=== PATIENT | male | born 1970 | race Caucasian/White ===

== ENCOUNTER 2021-01-01 21:20 | Inpatient (IN) | payer OTHER ==
[2021-01-01] MEDS ORDERED: Ondansetron PF 4 MG/2 ML Vial ONE (22:09)
[2021-01-01] MEDS ORDERED: HYDROmorphone 0.5 MG/0.5 ML SYRINGE ONE ×2 (22:09→23:35)
[2021-01-01 22:30] LABS: #Monocytes 0.7 10x3/uL (0.0-1.1); #Neutrophils 7.3 10x3/uL (1.5-8.4); %Basophils 0.1 % (0.0-2.0); %Lymphocytes 7.3 % (18.0-47.0); %Monocytes 7.8 % (0.0-10.0); %Neutrophils 84.3 % (40.0-75.0); Hemoglobin 11.6 g/dL (13.5-17.5); Mean Corpuscular HGB CONC 33.4 g/dL (32.0-36.0); Mean Corpuscular Hemoglobin 30.4 pg (27.0-33.0); Mean Corpuscular Volume 90.8 fl (81.2-95.1); Mean Platelet Volume 8.9 fl (7.4-10.4); Platelet Count 381 10x3/uL (150-450); RBC Distribution Width 13.6 % (11.5-14.5); Red Blood Cell (RBC) Count 3.82 10x6/uL (4.32-5.72); White Blood Cell (WBC) Count 8.6 10x3/uL (3.5-10.5)
[2021-01-01 22:49] LABS: ALT (SGPT) 25 U/L (8-55); AST (SGOT) 18 U/L (5-34); Albumin 4.4 g/dL (3.5-5.0); Alkaline Phosphatase 46 U/L (40-110); Anion Gap 14 mmol/L (10-20); BUN (Urea Nitrogen) 16 mg/dL (8.9-20.6); Bilirubin, Total 0.3 mg/dL (0.2-1.2); Calc. Creatinine Clearance 0 mL/min (70-130); Calcium 8.8 mg/dL (7.8-10.44); Carbon Dioxide 23 mmol/L (22-29); Chloride 103 mmol/L (98-107); Globulin 2.7 g/dL (2.4-3.5); Glucose 116 mg/dL (70-105); Lipase 26 U/L (8-78); Protein, Total 7.1 g/dL (6.0-8.3); Sodium 136 mmol/L (136-145)
[2021-01-01] MEDS ORDERED: methylPREDNISolone Sod Succ/PF 125 MG/2 ML VIAL ONE (23:18)
[2021-01-01] MEDS ORDERED: Pantoprazole 40 MG VIAL ONE (23:19)
[2021-01-02 01:21] LABS: Bilirubin Neg (Negative); Blood, Urine Negative (Negative); Clarity Clear (Clear); Glucose, Urine (Dipstick) Normal (Negative); Ketone, Urine Negative (Negative); Leukocyte Negative (Negative); Nitrite Negative (Negative); Protein, Urine (Dipstick) Negative (Neg-Trace); Urobilinogen Normal mg/dL (Less than 2); pH, Urine 6.5 (5.0-9.0)
[2021-01-02] MEDS ORDERED: Ondansetron ODT 4 MG TAB PO PRN (01:46)
[2021-01-02] MEDS ORDERED: Pantoprazole 40 MG VIAL ONE ×2 (01:46)
[2021-01-02] MEDS ORDERED: Pantoprazole 80 MG in Sodium Chloride 0.9% 100 ML IVPB SCH (01:53)
[2021-01-02] MEDS: Sodium Chloride 0.9% 1,000 ML IV SCH ×3 (03:25→18:54)
[2021-01-02 03:47] LABS: #Monocytes 0.1 10x3/uL (0.0-1.1); #Neutrophils 6.6 10x3/uL (1.5-8.4); %Lymphocytes 4.9 % (18.0-47.0); %Monocytes 1.8 % (0.0-10.0); %Neutrophils 92.7 % (40.0-75.0); Hemoglobin 10.9 g/dL (13.5-17.5); Mean Corpuscular HGB CONC 33.9 g/dL (32.0-36.0); Mean Corpuscular Hemoglobin 31.1 pg (27.0-33.0); Mean Corpuscular Volume 91.7 fl (81.2-95.1); Mean Platelet Volume 8.7 fl (7.4-10.4); Platelet Count 317 10x3/uL (150-450); RBC Distribution Width 13.6 % (11.5-14.5); Red Blood Cell (RBC) Count 3.51 10x6/uL (4.32-5.72); White Blood Cell (WBC) Count 7.1 10x3/uL (3.5-10.5)
[2021-01-02 04:05] LABS: Anion Gap 15 mmol/L (10-20); BUN (Urea Nitrogen) 14 mg/dL (8.9-20.6); Calc. Creatinine Clearance 0 mL/min (70-130); Carbon Dioxide 21 mmol/L (22-29); Chloride 106 mmol/L (98-107); Glucose 131 mg/dL (70-105); Magnesium 1.9 mg/dL (1.6-2.6); Potassium 4.1 mmol/L (3.5-5.1); Sodium 138 mmol/L (136-145)
[2021-01-02] MEDS ORDERED: Morphine 4 MG/ML VIAL ONE (04:08)
[2021-01-02] MEDS ORDERED: Ondansetron PF 4 MG/2 ML Vial ONE (04:09)
[2021-01-02] MEDS: Ondansetron PF 4 MG/2 ML Vial IVP PRN ×3 (04:13→17:44)
[2021-01-02] MEDS: Morphine 4 MG/ML VIAL SLOW IVP PRN ×5 (04:13→20:49)
[2021-01-02] MEDS ORDERED: methylPREDNISolone Sod Succ 40 MG VIAL ONE (05:29)
[2021-01-02] MEDS: methylPREDNISolone Sod Succ 40 MG VIAL IVP SCH ×3 (05:38→19:12)
[2021-01-02 08:37] VITALS: BMI 30.3
[2021-01-02] MEDS: Fish Oil 1,000 MG CAP PO SCH (08:54)
[2021-01-02] MEDS: Multivitamin W/ Minerals 1 TAB PO SCH (08:55)
[2021-01-02] MEDS: Lactinex Tablet PO SCH (08:55)
[2021-01-02] MEDS ORDERED: azaTHIOprine 50 MG TAB PO SCH (09:00)
[2021-01-02 13:35] LABS: SARS-CoV-2 PCR by NAA Not Detected (NotDetected)
[2021-01-02] MEDS ORDERED: GoLYTELY 4,000 ml Bottle PO SCH (19:15)
[2021-01-02] MEDS: cloNIDine 0.1 MG TAB PO SCH (20:53)
[2021-01-02] MEDS: Pantoprazole 40 MG VIAL IVP SCH (20:54)
[2021-01-03] MEDS: methylPREDNISolone Sod Succ 40 MG VIAL IVP SCH ×4 (00:03→20:16)
[2021-01-03] MEDS: Morphine 2 MG/ML VIAL SLOW IVP PRN ×3 (00:11→06:51)
[2021-01-03] MEDS: Sodium Chloride 0.9% 1,000 ML IV SCH ×3 (02:55→22:13)
[2021-01-03] MEDS: Pantoprazole 40 MG VIAL IVP SCH ×2 (09:51→22:12)
[2021-01-03] MEDS: Morphine 4 MG/ML VIAL SLOW IVP PRN ×3 (09:51→20:16)
[2021-01-03] MEDS: Ondansetron PF 4 MG/2 ML Vial IVP PRN ×2 (09:51→20:16)
[2021-01-03] MEDS: Multivitamin W/ Minerals 1 TAB PO SCH (09:56)
[2021-01-03] MEDS: Lactinex Tablet PO SCH (09:56)
[2021-01-03] MEDS: Fish Oil 1,000 MG CAP PO SCH (09:56)
[2021-01-03] MEDS ORDERED: PROPOFOL 20 ML ONE ×4 (16:04→16:47)
[2021-01-03] MEDS ORDERED: Fentanyl 100 MCG/2 ML VIAL ONE (16:05)
[2021-01-03] MEDS: cloNIDine 0.1 MG TAB PO SCH (22:12)
[2021-01-04] MEDS: methylPREDNISolone Sod Succ 40 MG VIAL IVP SCH ×5 (00:22→23:55)
[2021-01-04] MEDS: Morphine 4 MG/ML VIAL SLOW IVP PRN ×5 (00:22→22:09)
[2021-01-04] MEDS: Sodium Chloride 0.9% 1,000 ML IV SCH ×3 (02:20→18:22)
[2021-01-04] MEDS: Ondansetron PF 4 MG/2 ML Vial IVP PRN (09:47)
[2021-01-04] MEDS: Fish Oil 1,000 MG CAP PO SCH (09:59)
[2021-01-04] MEDS: Lactinex Tablet PO SCH (09:59)
[2021-01-04] MEDS: Multivitamin W/ Minerals 1 TAB PO SCH (09:59)
[2021-01-04] MEDS: Pantoprazole 40 MG VIAL IVP SCH ×2 (10:01→21:52)
[2021-01-04] MEDS ORDERED: Pantoprazole 40 MG VIAL ONE (20:21)
[2021-01-04] MEDS: cloNIDine 0.1 MG TAB PO SCH (21:49)
[2021-01-04] MEDS: Melatonin 3 MG TAB PO PRN (21:49)
[2021-01-05] MEDS: Sodium Chloride 0.9% 1,000 ML IV SCH ×2 (02:00→18:00)
[2021-01-05] MEDS: methylPREDNISolone Sod Succ 40 MG VIAL IVP SCH ×2 (05:29→10:44)
[2021-01-05] MEDS: Morphine 2 MG/ML VIAL SLOW IVP PRN ×3 (08:39→22:17)
[2021-01-05] MEDS: Pantoprazole 40 MG VIAL IVP SCH (08:42)
[2021-01-05] MEDS: Multivitamin W/ Minerals 1 TAB PO SCH (08:42)
[2021-01-05] MEDS: Fish Oil 1,000 MG CAP PO SCH (08:42)
[2021-01-05] MEDS: Lactinex Tablet PO SCH (08:43)
[2021-01-05] MEDS: Morphine 4 MG/ML VIAL SLOW IVP PRN (10:40)
[2021-01-05 13:13] LABS: #Monocytes 0.6 10x3/uL (0.0-1.1); #Neutrophils 8.7 10x3/uL (1.5-8.4); %Lymphocytes 2.4 % (18.0-47.0); %Monocytes 5.9 % (0.0-10.0); %Neutrophils 90.9 % (40.0-75.0); Mean Corpuscular HGB CONC 32.5 g/dL (32.0-36.0); Mean Corpuscular Hemoglobin 30.4 pg (27.0-33.0); Mean Corpuscular Volume 93.4 fl (81.2-95.1); Mean Platelet Volume 8.7 fl (7.4-10.4); Platelet Count 267 10x3/uL (150-450); RBC Distribution Width 13.9 % (11.5-14.5); Red Blood Cell (RBC) Count 3.62 10x6/uL (4.32-5.72); White Blood Cell (WBC) Count 9.5 10x3/uL (3.5-10.5)
[2021-01-05] MEDS ORDERED: Gabapentin 300 MG CAP PO SCH (15:30)
[2021-01-05] MEDS: cloNIDine 0.1 MG TAB PO SCH (22:12)
[2021-01-05] MEDS: Gabapentin 300 MG CAP PO SCH (22:16)
[2021-01-05] MEDS: Melatonin 3 MG TAB PO PRN (22:18)
[2021-01-06] MEDS: Hydrocortisone Acetate 25 MG Suppository PR SCH ×2 (05:34→09:00)
[2021-01-06] MEDS ORDERED: predniSONE 20 MG TAB PO SCH (08:00)
[2021-01-06 09:05] VITALS: TEMP 97.6
[2021-01-06] MEDS: Lactinex Tablet PO SCH (09:27)
[2021-01-06] MEDS: Fish Oil 1,000 MG CAP PO SCH (09:27)
[2021-01-06] MEDS: Multivitamin W/ Minerals 1 TAB PO SCH (09:27)
[2021-01-06] MEDS: Gabapentin 300 MG CAP PO SCH (09:27)
[2021-01-06 13:48] VITALS: BP 126/77
[2021-01-10 05:37] LABS: CMV DNA-PCR Test Negative (Negative)
== END 2021-01-06 13:55 | disposition home or self-care (01) | DRG 386 ==
LOC: CSHERS 21:20 → UNDOADMIN 23:37 → CSHERHOLD 23:37 → CSHTELE 01-02 07:06 → CSHERHOLD 01-02 07:06
PROVIDERS: ADMIT Family Medicine; ATTEND Internal Medicine
PROC: 0DBB8ZX Excision of Ileum, Via Natural or Artificial Opening Endoscopic, Diagnostic (ICD-10-PCS; principal; 2021-01-04)
PROC: 0DBP8ZX Excision of Rectum, Via Natural or Artificial Opening Endoscopic, Diagnostic (ICD-10-PCS; 2021-01-04)
PROC: 0DJ08ZZ Inspection of Upper Intestinal Tract, Via Natural or Artificial Opening Endoscopic (ICD-10-PCS; 2021-01-04)
DX: K50.018 Crohn's disease of small intestine with other complication (principal); K92.1 Melena; D84.9 Immunodeficiency, unspecified; D62 Acute posthemorrhagic anemia; K64.8 Other hemorrhoids; R73.9 Hyperglycemia, unspecified; Z88.1 Allergy status to other antibiotic agents; Z88.2 Allergy status to sulfonamides; Z87.891 Personal history of nicotine dependence; Z20.822 Contact with and (suspected) exposure to COVID-19
CPT/HCPCS: 74177; 80048; 80053; 81003; 83630; 83690; 83735; 85025; 86140; 86850; 86900; 86901; 87045; 87046; 87177; 87324; 87328; 87329; 87385; 87427; 87449; 87497; 87635; 88305; 96365; 96366; 96375; 96376; C9113; J1170; J2270; J2405; J2704; J2920; J2930; J3010; J7050; J7500; J7512; Q0162; U0003; U0005